=== PATIENT | female | born 1990 | race Caucasian/White ===

== ENCOUNTER 2016-09-27 01:06 | Emergency (ER) | payer OTHER ==
[~2016-09-27 01:06] MED LIST: CIPRO PO; DEPO-PROVER150 MG/ML INJ; DICLOFENAC PO; ERYTHROMYCIN OP; FAMOTIDINE PO; FLEXERIL10 MG PO; LORTAB 7.5-5001 TAB PO; MOBIC PO; NO MEDICATIONS; ORTHO TRI-7 DAYS X PO; PHENERGAN PO; PRENATAL MULITV1 TAB PO; PYRIDIUM PO; SKELAXIN PO; ZITHROMAX PO; ZOFRAN ODT4 MG PO
== END 2016-09-27 01:20 | disposition home or self-care (01) ==
LOC: CED 01:06
DX: Z53.21 Procedure and treatment not carried out due to patient leaving prior to being seen by health care provider (principal)

== ENCOUNTER 2016-10-09 00:09 | Emergency (ER) | payer OTHER ==
[~2016-10-09] VITALS: Ht 162.6 cm; Wt 72.6 kg
[2016-10-09] MEDS ORDERED: PROZAC40 MG (00:18)
== END 2016-10-09 01:11 | disposition home or self-care (01) ==
LOC: SED 00:09
DX: F18.10 Inhalant abuse, uncomplicated (principal); F32.9 Major depressive disorder, single episode, unspecified; Z90.49 Acquired absence of other specified parts of digestive tract; Z88.1 Allergy status to other antibiotic agents; Z88.8 Allergy status to other drugs, medicaments and biological substances
CPT/HCPCS: 99284

== ENCOUNTER 2016-10-11 10:29 | Inpatient (IN) | payer OTHER ==
[~2016-10-11] VITALS: Ht 162.6 cm; Wt 72.6 kg
--- NOTE | ~2016-10-11 | PA ---
Unit #: [id number] #: [id number] Patient: JENNIFER ISAAC [id number] [facility] [address] [place] [address] [id number] MR#: [id number] NAME: JENNIFER ISAAC ROOM: P252 Age: 25 Sex: F Admission Date: 10/11/2016 : 1990 Date of Assessment: 10/12/2016 Attending Physician: Sebastian Young M.D. Admitting Physician: Sebastian Young M.D. Primary Care Physician: Higinio Brito M.D. PSYCHIATRIC ASSESSMENT INFORMANT(S) Patient, reliability fair. Chart, reliability good. CHIEF COMPLAINT Depression. HISTORY OF PRESENT ILLNESS Ms. Jennifer Isaac is a 25-year-old female presented with the above-mentioned complaint. The patient reported severe depression, suicidal ideation, with a plan to walk into moving traffic to kill herself. The patient reported current stressors: Her 2 children were placed in their biological father's custody in 05/09/2016 after she had an argument with him, and police were called causing CPS involvement. The patient has ordered a drug assessment and a complete parenting program. The patient reports over the past 2 months using inhalers, dust, and bizarre behavior. The patient reported having symptoms of seizure last night and was taken to [place] [facility]. The patient stated that she ran out of her Xanax 4 days ago and prescribed Prozac, Bactrim, and discharged. The patient's next court date is on 10/13/2016 for theft. The patient needing inpatient admission at this time for psychiatric stabilization. PAST PSYCHIATRIC HISTORY Remarkable for history of previous treatment as an adolescent at [facility] for truancy, outpatient followup for depression, Dr. Beaulieu (04/08/2016). FAMILY/SOCIAL HISTORY The patient is living with the grandparents. No history of any abuse. History of legal problems as mentioned above. MEDICAL HISTORY Remarkable for history of UTI and asthma. Musculoskeletal: Muscle strength and tone: No atrophy or abnormal movement. Gait normal. MEDICATION HISTORY The patient is on Prozac, Bactrim, and albuterol. ALLERGIES No known drug allergies. SUBSTANCE ABUSE HISTORY The patient reported tobacco use, age of onset 25; alcohol, age of onset 16; marijuana, age of onset 16; inhalant, age of onset 25. Longest period Unit #: [id number] #: [id number] Patient: JENNIFER ISAAC of sobriety years. The patient reported history of black outs. No history of HIV, hepatitis, withdrawal symptom, or IV drug use. REVIEW OF SYSTEMS HEENT: Eyes: Clear. Ears, Nose, Mouth, and Throat: Clear. CARDIOVASCULAR/RESPIRATORY: Unremarkable. GI/: Unremarkable. SKIN/LYMPH NODE/NEUROLOGICAL/ENDOCRINE/HEMATOLOGICAL/ALLERGIC/IMMUNOLOGICAL: Unremarkable. MUSCULOSKELETAL: Muscle strength and tone: No atrophy or abnormal movement. Gait normal. MENTAL STATUS EXAMINATION Constitutional: Measurement of vital signs: 97.7, 87, 16. Oxygen saturation 100%, blood pressure 101/73. Height 5 feet 4 inches. Weight 160 pounds. General Appearance: The patient dressed casually. The patient is not showing any facial deformity. Musculoskeletal: Please see above. Psychiatric examination: Description of speech: Slow in volume and rate. Nonspontaneous. Description of thought process: Circumstantial. Description of association: Guarded, paranoid. Description of abnormal psychotic thinking: Guarded, paranoid, mood lability, delusional, withdrawn, flat, sad, depressed, suicidal ideation. Description of the patient's judgment: Concerning everyday activity, poor; social situation, poor; concerning psychiatric condition, poor. Complete Mental Status Examination: Oriented in time, place, and person. Recent and remote memory fair. Attention span, concentration poor. Language: Fair. Fund of knowledge: Fair. Vocabulary: Fair. Mood and affect: Sad, dysphoric. Insight and judgment: Fair to slightly impaired. ASSETS AND LIABILITIES Assets: The patient articulate. Able to take care of her ADL. Liabilities: Legal problems, depression, 358 . ADMITTING DIAGNOSES PSYCHIATRIC: Major depressive disorder, recurrent, severe, F33.2. Anxiety disorder not otherwise specified, F43.01 History of substance abuse disorder. SECONDARY: Deferred. MEDICAL: History of asthma. Urinary tract infection. STRESSORS: Psychosocial stressor. PSYCHIATRIC PLAN/TREATMENT GOALS/DISCHARGE PLANNING 1. Advised to admit the patient on the inpatient unit. Provide safe, supportive, structured environment. 2. Ordered labs: CBC, CMP, UA, UDS. 3. Precaution for self-harm. 4. The patient to attend all the programming on the inpatient unit. Group therapy, individual therapy, medication management. The patient was started on Zyprexa. The patient is on Prozac. Advised to continue. If needed, continue further adjustment of medication. We will continue to follow. 5. Treatment goal: To attain euthymic mood, gain insight into her problem, learn coping skill. Unit #: [id number] #: [id number] Patient: JENNIFER ISAAC 6. Discharge plan: Plan to stabilize the patient and consider followup in outpatient program. ESTIMATED LENGTH OF STAY 3 to 5 days. Dictated by... Sebastian Young M.D. SAJI/brant TD: 10/13/2016 11:29 JOB #: [id number] PSYCHIATRIC ASSESSMENT Page 1 of 1 X Sebastian Young MD X PSYCHIATRIC ASSESSMENT
--- NOTE | ~2016-10-11 | CO ---
Unit #: [id number] #: [id number] Patient: TOMAS AVELAR [id number] [facility] [address] [place] [address] [id number] MR#: [id number] NAME: TOMAS AVELAR ROOM: P252 Age: 25 Sex: F Admission Date: 10/11/2016 : 1990 Attending Physician: Sebastian Young M.D. Primary Care Physician: Higinio Brito M.D. Consultation Date: 10/13/2016 CONSULTATION REPORT ORDERING PROVIDER Dr. Young. REASON FOR CONSULT Congestion. SUBJECTIVE The patient reports that earlier today, she had some nasal congestion when she was lying down, however, since she has been upright, the congestion has resolved. She denies any wheezing or coughing. OBJECTIVE Her examination is unremarkable. Vital signs are stable. Lungs are clear to auscultation bilaterally. ASSESSMENT Congestion, resolved. PLAN Plan is to continue to monitor. Dictated by... Mey Roque/ty TD: 10/13/2016 23:35 JOB #: [id number] CONSULTATION REPORT Page 1 of 1 X JULIEN ELIZABETH APRN X CONSULTATION REPORT
--- NOTE | ~2016-10-11 | PN ---
Unit #: [id number] #: [id number] Patient: TOMAS AVELAR [id number] [facility] [address] [place] [address] [id number] I MR#: [id number] NAME: TOMAS AVELAR ROOM: P252 Age: 25 Sex: F Admission Date: 10/11/2016 : 1990 Attending Physician: Sebastian Young M.D. Admitting Physician: Sebastian Young M.D. Primary Care Physician: Abdirahman Butt PROGRESS NOTES DATE OF SERVICE 10/16/2016 DISCUSSION Ms. Rodriguez is a 25-year-old female. Patient interviewed, chart reviewed. Obtained information from nursing staff. Patient reported that she is feeling sad, depressed but reports medication is helping her able to contract for safety. Patient compliant and cooperative. Complete review of systems unremarkable. MENTAL STATUS EXAMINATION General appearance, patient dressed casually. Attention span and concentration fair. Oriented to time, place and person. Mood and affect sad, dysphoric. Speech monotone. Thought process concrete. Patient denied any thoughts of harming self or others or psychotic symptom. Recent and remote memory poor. Insight and judgement poor. DIAGNOSIS Major depressive disorder recurrent severe. ASSESSMENT/PLAN Advise to continue with current medication and therapeutic protocol. If needed consider further adjustment of medication. Dictated by... Abdirahman Mo/sushila TD: 10/18/2016 03:12 JOB #: [id number] [facility] PROGRESS NOTES Page 1 of 1 X Sebastian Young MD X PROGRESS NOTE
--- NOTE | ~2016-10-11 | PN ---
Unit #: [id number] #: [id number] Patient: JENNIFER ISAAC [id number] [facility] [address] [place] [address] [id number] I MR#: [id number] NAME: JENNIFER ISAAC ROOM: P252 Age: 25 Sex: F Admission Date: 10/11/2016 : 1990 Attending Physician: Sebastian Young M.D. Admitting Physician: Sebastian Young M.D. Primary Care Physician: Higinio Brito M.D. [facility] PROGRESS NOTES DATE OF SERVICE 10/15/2016 DISCUSSION Ms. Jennifer Isaac is a 25-year-old female seen on 10/15/2016. Patient reported that medication is making her sleepy in the morning but reported overall making progress. Decreased in paranoia, depressed. Complete review of systems unremarkable. MENTAL STATUS EXAMINATION General appearance, patient dressed casually. Attention span and concentration fair. Oriented to time, place and person. Mood and affect sad, dysphoric, flat. Speech monotone. Thought process concrete. Patient denied any suicidal or homicidal ideation but somewhat withdrawn. Recent and remote memory poor. Insight and judgement poor. DIAGNOSES 1. Mood disorder NOS. 2. Psychosis NOS. ASSESSMENT/PLAN Advise to discontinue trazodone and start patient on Seroquel 50 mg at bedtime, discontinue Zyprexa. If needed consider further adjustment of medication. Dictated by... Abdirahman Mo/sushila TD: 10/17/2016 02:54 JOB #: [id number] Unit #: [id number] #: [id number] Patient: JENNIFER ISAAC [facility] PROGRESS NOTES Page 1 of 1 X Sebastian Young MD PROGRESS NOTE
--- NOTE | ~2016-10-11 | HP ---
Unit #: [id number] #: [id number] Patient: JENNIFER AVELAR [id number] [facility] [address] [place] [address] [id number] I MR#: [id number] NAME: JENNIFER AVELAR ROOM: P252 Age: 25 Sex: F Admission Date: 10/11/2016 : 1990 Attending Physician: Sebastian Young M.D. Admitting Physician: Sebastian Young M.D. Primary Care Physician: Higinio Brito M.D. HISTORY AND PHYSICAL HISTORY OF PRESENT ILLNESS Jennifer is a 25-year-old female admitted on 10/11/[address] [place] [address] for suicidal ideation. PAST MEDICAL HISTORY Asthma. PAST SURGICAL HISTORY Cholecystectomy. ALLERGIES Potassium and Augmentin. SOCIAL HISTORY Smokes 1 pack of cigarettes daily. Occasional social alcohol and occasional social marijuana use. She is currently single and living with her grandparents. FAMILY HISTORY Noncontributory. REVIEW OF SYSTEMS CONSTITUTIONAL: No fever or chills. HEENT: Denies any sore throat, ear pain or runny nose. CARDIOVASCULAR: Denies chest pain, irregular heart rhythm or palpitations. CHEST: Denies shortness of breath or cough. No hemoptysis. GASTROINTESTINAL: Denies nausea, vomiting, diarrhea or chronic constipation. ENDOCRINE: Denies history of increased thirst or urination. No recent significant weight loss or gain. GENITOURINARY: Denies dysuria, frequency, or hematuria. SKIN: Denies any rashes. HEMATOLOGIC: Denies history of increased bleeding or bruising. MUSCULOSKELETAL: Denies any hot, swollen joints. No generalized muscle pain. NEUROLOGIC: Denies problems with vision or speech. No frequent, severe headaches. No numbness, tingling or weakness in any extremities. Denies loss of bladder or bowel control. CURRENT MEDICATIONS Prozac. PHYSICAL EXAMINATION Unit #: [id number] #: [id number] Patient: JENNIFER AVELAR GENERAL: Alert, oriented, in no acute distress. VITAL SIGNS: Blood pressure 101/73, heart rate 87, respirations 16, temperature 97.7. HEIGHT: 5 feet 4. WEIGHT: 160 pounds. SKIN: Warm and dry without rash or lesion. HEENT: Normocephalic. TMs not viewed. Oral and nasal passages clear. Conjunctivae clear. PERRLA. EOMs intact. NECK: Supple without lymphadenopathy or thyromegaly. HEART: Regular rate and rhythm without murmur. LUNGS: Clear. ABDOMEN: Soft, nontender, without masses or hepatosplenomegaly. : Not done. EXTREMITIES: No evidence of cyanosis, clubbing or edema. Moves all without focal deficit. NEUROLOGICAL: Grossly within normal limits. Cranial Nerves: II: Visual avina are intact. III, IV AND : Extraocular movements are intact. Pupils are equal, round and reactive to light. V: Facial sensation is grossly normal. VII: Facial movements and expression are normal. VIII: Auditory acuity grossly intact. IX, X: Uvula is midline. Phonation is normal. XI: Patient shrugs shoulders and turns head normally. XII: Tongue protrudes in the midline. Sensory and Motor Function: Sensory and motor sensation is grossly normal. Motor: moves all extremities well. Coordination: Gait is normal. Deep Tendon Reflexes: Intact. IMPRESSION 1. Psychiatric admission. 2. Asthma. RECOMMENDATIONS PSYCHIATRIC: Per psychiatrist. MEDICAL: No contraindication to participate in facility's activities. MEDICAL PROGNOSIS Good. MEDICAL CONDITION Stable. Dictated by... Mey Fields/jonathan TD: 10/11/2016 18:44 JOB #: [id number] Unit #: [id number] #: [id number] Patient: JENNIFER AVELAR HISTORY AND PHYSICAL Page 1 of 1 X CINDA DUNN APRN X HISTORY AND PHYSICAL
--- NOTE | ~2016-10-11 | DS ---
Unit #: [id number] #: [id number] Patient: TOMAS AVELAR [id number] [facility] [address] [place] [address] [id number] I MR#: [id number] NAME: TOMAS AVELAR ROOM: [facility] Age: 25 Sex: F Admission Date: 10/11/2016 : 1990 Discharge Date: 10/17/2016 Attending Physician: Sbeastian Young M.D. Primary Care Physician: Higinio Brito M.D. DISCHARGE SUMMARY REASON FOR ADMISSION Depression and psychosis. DIAGNOSTIC STUDIES LABORATORY RESULTS: Urine drug screen is positive for benzodiazepine. HOSPITAL COURSE The patient was admitted to inpatient unit on 10/11/2016 and discharged on 10/17/2016. The patient was treated on the inpatient unit with group therapy, individual therapy, chemical dependency group, medication management. The patient was responsive to treatment. Subsequently, the patient was discharged with a plan to follow up in outpatient program. DISCHARGE MEDICATIONS Prozac 40 mg daily for depression, Claritin 10 mg daily for allergies, Pepcid 20 mg b.i.d. for GERD, Vistaril 25 mg q.i.d. for anxiety, Seroquel 50 mg at bedtime for sleep, and psychosis. DISCHARGE DIAGNOSES Psychiatric: 1. Major depressive disorder, recurrent, severe, F33.2. 2. Anxiety disorder, not otherwise specified, F40.01. Secondary diagnosis: Deferred. Medical diagnosis: Asthma, urinary tract infection. Stressors: Psychosocial stressors. DISCHARGE INSTRUCTIONS The patient is to follow up in outpatient clinic as per elementary school social worker. CONDITION ON DISCHARGE The patient was pleasant and cooperative. Denied any psychotic symptom or any suicidal ideation. PROGNOSIS Guarded. DIET AND ACTIVITY As tolerated. Dictated by... Unit #: [id number] #: [id number] Patient: TOMAS AVELAR Sebastian Young M.D. SZC/modl TD: 10/19/2016 03:37 JOB #: [id number] DISCHARGE SUMMARY Page 1 of 1 X Sebastian Young MD X DISCHARGE SUMMARY
--- NOTE | ~2016-10-11 | PN ---
Unit #: [id number] #: [id number] Patient: TOMAS AVELAR [id number] [facility] [address] [place] [address] [id number] I MR#: [id number] NAME: TOMAS AVELAR ROOM: P252 Age: 25 Sex: F Admission Date: 10/11/2016 : 1990 Attending Physician: Sebastian Young M.D. Admitting Physician: Sebastian Young M.D. Primary Care Physician: Abdirahman Butt PROGRESS NOTES DATE 10/14/2016 DISCUSSION Ms. Rodriguez is a 25-year-old female seen on 10/14/2016. Patient interviewed. Chart reviewed. Obtained information from nursing staff. Patient was compliant, cooperative, able to participate in activity therapy, calm, cooperative throughout the group. Interacted appropriately. Patient still somewhat sad, dysphoric, flat affect, guarded, anxious. Patient's complete review of system unremarkable. MENTAL STATUS EXAMINATION General appearance, patient dressed casually. Attention span, concentration fair. Oriented in time, place and person. Mood and affect labile. Speech monotone. Thought process concrete. Patient denied any thoughts of harming self or others but somewhat guarded, withdrawn, isolative. Recent and remote memory poor. Insight and judgement poor. DIAGNOSES 1. Major depressive disorder, recurrent, severe. 2. Rule out bipolar mood disorder. ASSESSMENT/PLAN Advised to continue with current medication and therapeutic protocol. If needed, consider further adjustment of medication. Dictated by... Abdirahman Mo/jonathan TD: 10/14/2016 20:58 JOB #: [id number] Unit #: [id number] #: [id number] Patient: TOMAS AVELAR [facility] PROGRESS NOTES Page 1 of 1 X Sebastian Young MD X PROGRESS NOTE
--- NOTE | ~2016-10-11 | CO ---
Unit #: [id number] #: [id number] Patient: JENNIFER AVELAR [id number] [place] [address] [id number] I MR#: [id number] NAME: JENNIFER AVELAR ROOM: [facility] Age: 25 Sex: F Admission Date: 10/11/2016 : 1990 Attending Physician: Sebastian Young M.D. Primary Care Physician: Higinio Brito M.D. Consultation Date: 10/11/2016 CONSULTATION REPORT HISTORY OF PRESENT ILLNESS Jennifer reports that 1 week ago, she noticed a rash on the inside of her left arm, on the inside of her right forearm and on her right knee that started out very itchy and at first, she thought it was poison jensen, but now she is not sure, she has been using calamine lotion, which helped dry at the left side, but has not helped at other spots on her arm. She reports redness, but no oozing and has not treated with any other medications. She has no other complaints. PHYSICAL EXAMINATION CARDIAC: Regular rate and rhythm. No murmurs, gallops, or rubs. RESPIRATORY: Clear to auscultation bilaterally. SKIN: Mild erythemic bumps on right forearm, right knee and back that appeared to be chiggers. ASSESSMENT AND PLAN Contact dermatitis, likely caused by blood chiggers. We will begin Claritin 10 mg p.o. daily, Zantac 150 mg p.o. b.i.d. and hydrocortisone cream 1% apply b.i.d. for 10 days. Please notify if symptoms worsen. Dictated by... Mey Fields/ty TD: 10/12/2016 01:11 JOB #: [id number] CONSULTATION REPORT Page 1 of 1 X CINDA DUNN APRN X CONSULTATION REPORT
--- NOTE | ~2016-10-11 | PN ---
Unit #: [id number] #: [id number] Patient: JENNIFER ISAAC [id number] [facility] [address] [place] [address] [id number] I MR#: [id number] NAME: JENNIFER ISAAC ROOM: P252 Age: 25 Sex: F Admission Date: 10/11/2016 : 1990 Attending Physician: Sebastian Young M.D. Admitting Physician: Sebastian Young M.D. Primary Care Physician: Higinio Brito M.D. [facility] PROGRESS NOTES DATE 10/13/2016 DISCUSSION Ms. Jennifer Isaac is a 25-year-old female seen on 10/13/2016. Patient interviewed. Chart reviewed. Obtained information from nursing staff. Patient continues to be seclusive, isolative, sad, depressed, passive SI. Patient's vital signs stable, initially refused. Patient complaining of feeling sick, avoiding groups. Complete review of system unremarkable. MENTAL STATUS EXAMINATION General appearance, patient dressed casually. Attention span, concentration poor. Oriented in self and place. Mood and affect labile, sad, depressed, withdrawn. Speech monotone. Thought process concrete. Patient reported having passive SI. Denied any homicidal ideation, guarded, withdrawn, isolative. Recent and remote memory poor. Insight and judgement poor. DIAGNOSES 1. Major depressive disorder, recurrent, severe, F33.2. 2. Anxiety disorder NOS. 3. History of substance abuse disorder. ASSESSMENT/PLAN Advised to continue with current medication and therapeutic protocol. If needed, consider adjustment of medication. Dictated by... Abdirahman Mo/jonathan TD: 10/13/2016 20:14 JOB #: [id number] Unit #: [id number] #: [id number] Patient: JENNIFER ISAAC [facility] PROGRESS NOTES Page 1 of 1 X Sebastian Young MD PROGRESS NOTE
[~2016-10-11 10:29] MED LIST changes: +PROZAC40 MG
[2016-10-13 10:00] LABS: URINE APPEARANCE CLEAR; URINE BILIRUBIN NEG (NEG); URINE BLOOD 1+ (NEG); URINE COLOR YELLOW; URINE GLUCOSE NEG (NEG); URINE KETONE NEG (NEG); URINE LEUKOCYTE ESTERASE 2+ (NEG); URINE NITRATE POS (NEG); URINE PH 5.5 (5-8); URINE PROTEIN NEG (NEG); URINE SPECIFIC GRAVITY 1.019 (1.003-1.035); URINE UROBILINOGEN 0.2 MG/DL (NEG)
[2016-10-13 10:02] LABS: URBCS1 AUWI 0-2 /[HPF] (0-2); URINE BACTERIA AUWI 4+ (NEGATIVE); URINE SQUAMOUS EPITHELIAL CELL OCC /[HPF]; UWBCS1 AUWI 25-50 (0-5)
[2016-10-13 11:04] LABS: AMPHETAMINE NEG (NEG); BARBITURATES NEG (NEG); BENZODIAZEPINES POS (NEG); COCAINE NEG (NEG); MARIJUANA NEG (NEG); OPIATES NEG (NEG); TRICYCLIC ANTIDEPRESSANTS NEG (NEG); U METHADONE NEG (NEG)
== END 2016-10-17 14:00 | disposition home or self-care (01) | DRG 885 ==
LOC: P2L 13:17 → POF 13:17 → P2L 13:29 → POF 14:00 → P2L 14:05
PROVIDERS: Psychiatry & Neurology Psychiatry
DX: F33.2 Major depressive disorder, recurrent severe without psychotic features (principal); N39.0 Urinary tract infection, site not specified; J45.909 Unspecified asthma, uncomplicated; F17.210 Nicotine dependence, cigarettes, uncomplicated; F41.9 Anxiety disorder, unspecified
CPT/HCPCS: 80307; 81003

== ENCOUNTER 2016-10-20 12:00 | Inpatient (IN) | payer OTHER ==
[~2016-10-20] VITALS: Ht 162.6 cm; Wt 72.6 kg
--- NOTE | ~2016-10-20 | PN ---
Unit #: [id number] #: [id number] Patient: TOMAS AVELAR [id number] [facility] [address] [place] [address] [id number] I MR#: [id number] NAME: TOMAS AVELAR ROOM: P209 Age: 25 Sex: F Admission Date: 10/20/2016 : 1990 Attending Physician: Sebastian Young M.D. Admitting Physician: Sebastian Young M.D. Primary Care Physician: Abdirahman Desir PROGRESS NOTES DATE OF SERVICE 10/21/2016 DISCUSSION Ms. Rodriguez is a 25-year-old female seen on 10/21/2016. Patient interviewed, chart reviewed, I obtained information from nursing staff. Patient compliant, cooperative, mood was labile, very anxious, nervous, reported having severe anxiety, mood lability. Patient still having passive SI. COMPLETE REVIEW OF SYSTEMS Unremarkable. MENTAL STATUS EXAMINATION GENERAL APPEARANCE: Patient dressed casually. ATTENTION SPAN AND CONCENTRATION: Fair. Oriented in time, place and person. MOOD AND AFFECT: Sad, dysphoric. SPEECH: Monotone. THOUGHT PROCESS: Mullen. Patient denied any thoughts of harming self or others. RECENT AND REMOTE MEMORY: Poor. INSIGHT AND JUDGMENT: Poor. DIAGNOSIS Major depressive disorder, recurrent, severe ASSESSMENT/PLAN Advised to continue with current medication and therapeutic protocol. Advised to add Neurontin 300 mg three times a day and Vistaril changed to 50 mg three times a day. We will continue to follow and make necessary changes, if needed. Dictated by... Abdirahman Mo/dirk TD: 10/21/2016 23:53 JOB #: [id number] Unit #: [id number] #: [id number] Patient: TOMAS AVELAR ROBBIE PROGRESS NOTES Page 1 of 1 X Sebastian Young MD PROGRESS NOTE
--- NOTE | ~2016-10-20 | DS ---
Unit #: [id number] #: [id number] Patient: TOMAS AVELAR [id number] [place] [address] [id number] I MR#: [id number] NAME: TOMAS AVELAR ROOM: P209 Age: 25 Sex: F Admission Date: 10/20/2016 : 1990 Discharge Date: 10/24/2016 Attending Physician: Sebastian Young M.D. Primary Care Physician: Renadr Morrow M.D. DISCHARGE SUMMARY REASON FOR ADMISSION Suicidal ideation. DIAGNOSTIC STUDIES LABORATORY RESULTS: Unremarkable. HOSPITAL COURSE The patient was admitted to inpatient unit on 10/20/2016 and discharged on 10/24/2016. The patient was treated with group therapy, individual therapy, chemical dependency group, structured milieu, and expressive therapy. The patient was responsive to treatment, and subsequently, the patient was discharged with a plan to follow up in outpatient program. DISCHARGE MEDICATIONS Pepcid 20 mg b.i.d. for GERD, Claritin 10 mg daily for allergies, Prozac 60 mg daily for depression, Seroquel 50 mg at bedtime for mood stabilization and sleep, Neurontin 300 mg t.i.d. for chronic pain and anxiety, and Vistaril 50 mg t.i.d. for anxiety. DISCHARGE DIAGNOSES Psychiatric: Major depressive disorder, recurrent, severe, F33.2; anxiety disorder, not otherwise specified, F40.01; and history of cocaine use disorder, moderate, F14.20. Secondary diagnosis: Deferred. Medical diagnosis: History of asthma. Stressors: Psychosocial stressors. DISCHARGE INSTRUCTIONS The patient to follow up in outpatient clinic as per school social worker. CONDITION ON DISCHARGE The patient was pleasant and cooperative. Denied any psychotic symptom or any suicidal ideation. PROGNOSIS Guarded. DIET AND ACTIVITY As tolerated. Unit #: [id number] #: [id number] Patient: TOMAS AVELAR Dictated by... Sebastian Young M.D. SZC/jhonnyl TD: 10/24/2016 21:12 JOB #: [id number] DISCHARGE SUMMARY Page 1 of 1 X Sebastian Young MD DISCHARGE SUMMARY
--- NOTE | ~2016-10-20 | PN ---
Unit #: [id number] #: [id number] Patient: TOMAS AVELAR [id number] [facility] [address] [place] [address] [id number] I MR#: [id number] NAME: TOMAS AVELAR ROOM: P209 Age: 25 Sex: F Admission Date: 10/20/2016 : 1990 Attending Physician: Sebastian Young M.D. Admitting Physician: Sebastian Young M.D. Primary Care Physician: Abdirahman Desir PROGRESS NOTES DATE OF SERVICE 10/23/2016 DISCUSSION Ms. Rodriguez is a 25-year-old male seen on 10/23/2016. Patient interviewed, chart reviewed. Obtained information from nursing staff. Patient reported that she is still feeling sad, depressed but denied any suicidal or homicidal ideation. Patient reported that she has been on Prozac for a long time and needed her medication to be adjusted. Patient's vital signs 98.5, 65, 132/95 97. Complete review of systems unremarkable. MENTAL STATUS EXAMINATION General appearance, patient dressed casually, withdrawn, isolative, sad, depressed. Attention span and concentration fair. Oriented to time, place and person. Mood and affect sad dysphoric. Speech monotone. Thought process concrete. Patient denied any thoughts of harming self or others or any psychotic symptoms. Recent and remote memory poor. Insight and judgement poor. DIAGNOSES 1. Mood disorder NOS. 2. Cocaine use disorder severe. 3. Sedative hypnotic use disorder severe. ASSESSMENT/PLAN Advise to continue with current medication and therapeutic protocol. If needed consider further adjustment of medication with a plan to increase Prozac to 60 mg daily. Dictated by... Abdirahman Mo/sushila TD: 10/24/2016 23:52 JOB #: [id number] Unit #: [id number] #: [id number] Patient: TOMAS AVELARSTEPHY PROGRESS NOTES Page 1 of 1 X Sebastian Young MD PROGRESS NOTE
--- NOTE | ~2016-10-20 | PN ---
Unit #: [id number] #: [id number] Patient: JENNIFER ISAAC [id number] [facility] [address] [place] [address] [id number] I MR#: [id number] NAME: JENNIFER ISAAC ROOM: P209 Age: 25 Sex: F Admission Date: 10/20/2016 : 1990 Attending Physician: Sebastian Young M.D. Admitting Physician: Sebastian Young M.D. Primary Care Physician: Abdirahman Desir PROGRESS NOTES DATE 10/22/2016 DISCUSSION Jennifer Isaac is a 25-year-old female seen on 10/22/2016. Patient interviewed. Chart reviewed. Obtained information from nursing staff. Patient requests for larger portion and also reported having a lot of anxiety. Patient sad, depressed, withdrawn, isolative, guarded but able to maintain safe behavior. Patient had scored 7 on a CIWA score. Complete review of system unremarkable. MENTAL STATUS EXAMINATION General appearance, patient dressed casually. Attention span, concentration fair. Oriented in time, place and person. Mood and affect sad, depressed. Speech monotone. Thought process concrete. Patient denied any thoughts of harming self or others. Recent and remote memory poor. Insight and judgement poor. DIAGNOSIS Major depressive disorder, recurrent, severe. ASSESSMENT/PLAN Advised to continue with current medication and therapeutic protocol. Ordered larger portion all meals. Continue with the inpatient programming. If needed, make further adjustment of medication. Dictated by... Abdirahman Mo/jonathan TD: 10/22/2016 23:24 JOB #: [id number] Unit #: [id number] #: [id number] Patient: JENNIFER ISAAC PROGRESS NOTES Page 1 of 1 X Sebastian Young MD PROGRESS NOTE
--- NOTE | ~2016-10-20 | HP ---
Unit #: [id number] #: [id number] Patient: JENNIFER AVELAR [id number] [place] [address] [id number] I MR#: [id number] NAME: JENNIFER AVELAR ROOM: P209 Age: 25 Sex: F Admission Date: 10/20/2016 : 1990 Attending Physician: Sebastian Young M.D. Admitting Physician: Sebastian Young M.D. Primary Care Physician: Renard Morrow M.D. HISTORY AND PHYSICAL HISTORY OF PRESENT ILLNESS Jennifer is a 25 year old admitted to [address] [place] [address] because of her continued polysubstance abuse which includes alcohol and benzodiazepines. PAST MEDICAL HISTORY 1. Long history of illicit substance abuse to include benzodiazepines. 2. History of alcohol abuse. 3. History of withdrawal seizures. 4. Asthma. PAST SURGICAL HISTORY Cholecystectomy. ALLERGIES Augmentin, potassium. SOCIAL HISTORY Smokes 1 pack per day. Drinks alcohol frequently and has a history of illicit drug use to include abusing benzodiazepines. FAMILY HISTORY Medically noncontributory. REVIEW OF SYSTEMS CONSTITUTIONAL: No fever or chills. HEENT: Denies any sore throat, ear pain or runny nose. CARDIOVASCULAR: Denies chest pain, irregular heart rhythm or palpitations. CHEST: Denies shortness of breath or cough. No hemoptysis. GASTROINTESTINAL: Denies nausea, vomiting, diarrhea or chronic constipation. ENDOCRINE: Denies history of increased thirst or urination. No recent significant weight loss or gain. GENITOURINARY: Denies dysuria, frequency, or hematuria. SKIN: Denies any rashes. HEMATOLOGIC: Denies history of increased bleeding or bruising. MUSCULOSKELETAL: Denies any hot, swollen joints. No generalized muscle pain. NEUROLOGIC: Denies problems with vision or speech. No frequent, severe headaches. No numbness, tingling or weakness in any extremities. Denies loss of bladder or bowel control. CURRENT MEDICATIONS Detox protocol. Unit #: [id number] #: [id number] Patient: JENNIFER AVELAR PHYSICAL EXAMINATION GENERAL: Alert, well-nourished, in no apparent distress. VITAL SIGNS: Blood pressure 100/46, heart rate 80, respirations 16, temperature 98.6. WEIGHT: 160. HEIGHT: 5 feet 4 inches. SKIN: Warm and dry without rash or lesion. HEENT: Normocephalic. TMs not viewed. Oral and nasal passages clear. Conjunctivae clear. PERRLA. EOMs intact. NECK: Supple without lymphadenopathy or thyromegaly. HEART: Regular rate and rhythm without murmur. LUNGS: Clear. ABDOMEN: Soft, nontender. : Not done. EXTREMITIES: No evidence of cyanosis, clubbing or edema. Moves all without focal deficit. NEUROLOGICAL: Grossly within normal limits. Cranial Nerves: II: Visual avina are intact. III, IV AND : Extraocular movements are intact. Pupils are equal, round and reactive to light. V: Facial sensation is grossly normal. VII: Facial movements and expression are normal. VIII: Auditory acuity grossly intact. IX, X: Uvula is midline. Phonation is normal. XI: Patient shrugs shoulders and turns head normally. XII: Tongue protrudes in the midline. Sensory and Motor Function: Sensory and motor sensation is grossly normal. Motor: moves all extremities well. Coordination: Gait is normal. Deep Tendon Reflexes: Intact. IMPRESSION Psychiatric admission. RECOMMENDATIONS PSYCHIATRIC: Per psychiatrist. MEDICAL: See no contraindication to participate in facility's activities. MEDICAL PROGNOSIS Good. MEDICAL CONDITION Stable. Dictated by... Montserrat Hendrix PJackyA.-C. for Abdirahman Campos/jonathan TD: 10/21/2016 18:05 JOB #: [id number] Unit #: [id number] #: [id number] Patient: JENNIFER AVELAR HISTORY AND PHYSICAL Page 1 of 1 X Montserrat Hendrix X HISTORY AND PHYSICAL
--- NOTE | ~2016-10-20 | PA ---
Unit #: [id number] #: [id number] Patient: TOMAS AVELAR [id number] [facility] [address] [place] [address] [id number] I MR#: [id number] NAME: TOMAS AVELAR ROOM: P209 Age: 25 Sex: F Admission Date: 10/20/2016 : 1990 Date of Assessment: Attending Physician: Sebastian Young M.D. Admitting Physician: Sebastian Young M.D. Primary Care Physician: Renard Morrow M.D. PSYCHIATRIC ASSESSMENT INFORMANTS The patient reliability, fair informant; chart reliability, good. CHIEF COMPLAINT Suicide attempt on 72-hour hold by taking overdose. HISTORY OF PRESENT ILLNESS Ms. Rodriguez is a 25-year-old female, who is well known to us from her last admission on 10/11/2016 and recently discharged on 10/17/2016, presented with the above-mentioned complaint. The patient reports that she took intentional overdose as there are multiple stressors. The patient presented to [facility] with police. The police after they came to serve bench warrant and she disclosed that intentional overdose yesterday for 10 Seroquel and 100 tablets of 15 Vistaril, 10 Prozac of 40 mg approximately 4:00 p.m. on 10/19/2016. The patient reported intentional wanted to kill herself today. The patient was upset and overdosed unsuccessfully. The patient reported feeling sad, depressed. Denied any homicidal ideation or psychotic symptom. The patient reports currently using Xanax and cocaine. The patient will not disclose the amount. The patient reported lot of stress like losing job, losing housing, divorce from , CPS involvement due to drug use, loss of custody of children. Her multiple issues reported feeling sad, depressed, suicidal ideation, needing inpatient admission at this time for psychiatric stabilization. PAST PSYCHIATRIC HISTORY Remarkable for history of previous treatment at [facility]. Before that, history of treatment through [facility] as a child truancy outpatient followup with Dr. Beaulieu for depression. FAMILY HISTORY AND SOCIAL HISTORY The patient is currently living with grandparents. No history of abuse, but history of legal problem as mentioned above. MEDICAL HISTORY Remarkable for history of asthma, UTI. Musculoskeletal; muscle strength and tone, no atrophy or abnormal movement. Gait normal. MEDICATION HISTORY The patient is on Prozac and albuterol. ALLERGIES No known drug allergies. Unit #: [id number] #: [id number] Patient: TOMAS AVELAR SUBSTANCE ABUSE HISTORY Please see above. History of alcohol abuse, age of onset 25. Marijuana, age of onset 16. Inhalant, age of onset 25. Longest period of sobriety a year. The patient reported history of blackouts. No history of any HIV, hepatitis withdrawal symptoms, or any IV drug use. REVIEW OF SYSTEMS HEENT: Eyes, clear. Ears, nose, mouth, and throat are clear. CARDIOVASCULAR: Unremarkable. GI: Unremarkable. : Unremarkable. SKIN: Unremarkable. LYMPH NODE: Unremarkable. NEUROLOGIC: Unremarkable. ENDOCRINE: Unremarkable. HEMATOLOGIC: Unremarkable. ALLERGIC/IMMUNOLOGIC: Unremarkable. MUSCULOSKELETAL: Muscle strength and tone, no atrophy or abnormal movement. Gait normal. MENTAL STATUS EXAMINATION CONSTITUTIONAL: Measurement of vital signs; temperature is 98.7, pulse 59, respirations 16, oxygen saturation 100%, blood pressure 96/47, height 5 feet 4 inches, weight 160 pounds. GENERAL APPEARANCE: The patient dressed casually. No facial deformity noted. MUSCULOSKELETAL: Please see above. PSYCHIATRIC EXAMINATION Description of speech; regular rate, normal volume, normal articulation, coherent. Description of thought process, goal directed. Description of association, intact. Description of abnormal psychotic thinking; the patient denied any hallucination, but depression, suicidal ideation and suicide attempt. Denied any homicidal ideation. Description of the patient's judgment, concerning everyday activity, poor. Social situation, poor. Concerning psychiatric condition, poor. Complete mental status examination; oriented in time, place, and person. Attention span and concentration, fair. Language, intact. Fund of knowledge, fair. Vocabulary, fair. Mood and affect, sad and dysphoric. Insight and judgment, fair to poor. ASSETS AND LIABILITIES Assets; the patient is articulate and able to take care of her ADL. Liability; history of depression, suicidal ideation, suicide attempt, substance abuse. ADMITTING DIAGNOSES Psychiatric: Major depressive disorder, recurrent, severe, F33.2; anxiety disorder, not otherwise specified, F40.01; history of substance abuse disorder; cocaine abuse disorder, moderate, F14.20. Secondary diagnosis: Deferred. Medical diagnosis: History of asthma. Stressors: Psychosocial stressors. Unit #: [id number] #: [id number] Patient: TOMAS AVELAR PSYCHIATRIC PLAN AND TREATMENT GOAL AND DISCHARGE PLAN 1. Admit the patient on the inpatient unit. Provide safe, supportive, and structured environment. 2. Ordered labs; UA, UDS. 3. Plan to resume home medication. If needed, consider further adjustment of medication. 4. Treatment goal; to attain euthymic mood, gain insight into her problem, and learn coping skills. DISCHARGE PLAN Plan to stabilize the patient and consider followup in outpatient program. ESTIMATED LENGTH OF STAY 5 to 7 days. Dictated by... Abdirahman Mo/ty TD: 10/21/2016 14:58 JOB #: [id number] PSYCHIATRIC ASSESSMENT Page 1 of 1 X Sebastian Young MD X PSYCHIATRIC ASSESSMENT
[2016-10-21 09:41] LABS: BASOPHIL# 0.1 X10e3 (0-0.3); BASOPHIL% 0.9 % (0-2.5); EOSINOPHIL# 0.1 X10e3 (0-0.7); EOSINOPHIL% 1.2 % (0.0-7.0); HEMATOCRIT 40.6 % (35.0-45.0); HEMOGLOBIN 13.3 gm/dL (12.0-16.0); LYMPHOCYTE# 2.5 X10e3 (1.0-3.5); LYMPHOCYTE% 33.2 % (17.0-45.0); MEAN CELL VOLUME 89.1 FL (83-96); MEAN CORPUSCULAR HEMOGLOBIN 29.1 PG (28-34); MEAN CORPUSCULAR HGB CONC 32.7 g/dL (30-36); MEAN PLATELET VOLUME 7.7 FL (6.5-11.5); MONOCYTE# 0.3 X10e3 (0-1.0); MONOCYTE% 4.4 % (3.0-12.0); NEUTROPHIL# 4.6 X10e3 (1.5-7.1); NEUTROPHIL% 60.3 % (40-75); PLATELET COUNT 360 X10e3 (140-420); RED BLOOD COUNT 4.56 X10e (3.90-5.30); RED CELL DISTRIBUTION WIDTH 13.1 % (11.0-15.5); WHITE BLOOD COUNT 7.7 X10e3 (4.0-10.5)
[2016-10-21 09:54] LABS: DIFF IND NO
[2016-10-21 10:12] LABS: URINE APPEARANCE CLOUDY; URINE BILIRUBIN NEG (NEG); URINE BLOOD 2+ (NEG); URINE COLOR YELLOW; URINE GLUCOSE NEG (NEG); URINE KETONE NEG (NEG); URINE LEUKOCYTE ESTERASE 3+ (NEG); URINE NITRATE NEG (NEG); URINE PROTEIN NEG (NEG); URINE SPECIFIC GRAVITY 1.016 (1.003-1.035); URINE UROBILINOGEN 0.2 MG/DL (NEG)
[2016-10-21 10:35] LABS: URINE BACTERIA AUWI 3+ (NEGATIVE); URINE SQUAMOUS EPITHELIAL CELL MANY /[HPF]; URINE TRANSITIONAL EPI CELLS FEW /[HPF]
[2016-10-21 10:36] LABS: URINE AMORPHOUS SEDIMENT AMORP URATES; URINE MUCUS PRESENT; URINE YEAST PRESENT; UWBCS1 AUWI 50-100 (0-5)
[2016-10-21 10:49] LABS: BILIRUBIN,TOTAL 0.8 mg/dL (0.2-2.0); CALCIUM SERUM 9.2 mg/dL (8.4-10.2); GLOM FILT RATE Estimated 77.2 mL/min (>60); POTASSIUM 4.3 mmol/L (3.5-5.1); PROTEIN TOTAL SERUM 6.8 g/dL (6.0-8.3)
== END 2016-10-24 10:21 | disposition home or self-care (01) | DRG 885 ==
LOC: P2S 16:22
PROVIDERS: Psychiatry & Neurology Psychiatry
DX: F33.2 Major depressive disorder, recurrent severe without psychotic features (principal); R45.851 Suicidal ideations; F13.20 Sedative, hypnotic or anxiolytic dependence, uncomplicated; F14.20 Cocaine dependence, uncomplicated; F41.9 Anxiety disorder, unspecified; F10.10 Alcohol abuse, uncomplicated; F17.210 Nicotine dependence, cigarettes, uncomplicated; Z88.1 Allergy status to other antibiotic agents
CPT/HCPCS: 80053; 81003; 84703; 85025; 86592

== ENCOUNTER 2016-10-26 14:56 | Inpatient (IN) | payer OTHER ==
[~2016-10-26] VITALS: Ht 162.6 cm; Wt 68.0 kg
--- NOTE | ~2016-10-26 | PN ---
Unit #: [id number] #: [id number] Patient: JENNIFER ISAAC [id number] [facility] [address] [place] [address] [id number] I MR#: [id number] NAME: JENNIFER ISAAC ROOM: P252 Age: 25 Sex: F Admission Date: 10/26/2016 : 1990 Attending Physician: Sebastian Young M.D. Admitting Physician: Sebastian Young M.D. Primary Care Physician: Abdirahman Desir PROGRESS NOTES DATE OF SERVICE 10/28/2016 DISCUSSION Jennifer Isaac is a 25-year-old female seen on 10/28/2016. The patient interviewed, chart reviewed. Obtained information from nursing staff. The patient continues to be sad, dysphoric, flat affect, guarded, withdrawn, isolative, and mood lability. Complete Review of Systems: Unremarkable. MENTAL STATUS EXAMINATION General Appearance: The patient dressed casually. Attention span, concentration: Fair. Oriented in place and person. Mood and affect labile. Thought process: [place]. The patient denied any thoughts of harming self or others but withdrawn, isolative, guarded. Recent and remote memory: Poor. Insight and judgment: Poor. DIAGNOSES 1. Bipolar mood disorder not otherwise specified. 2. History of cocaine use disorder. ASSESSMENT/PLAN Advised to continue with current medication and therapeutic protocol and also ordered hydrocortisone 1% for the patient's complaining of rash on her left arm. Closely monitor the patient's mood and behavior. Dictated by... Abdirahman Mo/brant TD: 10/29/2016 11:09 JOB #: [id number] Unit #: [id number] #: [id number] Patient: JENNIFER ISAAC ROBBIE PROGRESS NOTES Page 1 of 1 X Sebastian Young MD PROGRESS NOTE
--- NOTE | ~2016-10-26 | PN ---
Unit #: [id number] #: [id number] Patient: TOMAS AVELAR [id number] [facility] [address] [place] [address] [id number] I MR#: [id number] NAME: TOMAS AVELAR ROOM: P252 Age: 25 Sex: F Admission Date: 10/26/2016 : 1990 Attending Physician: Sebastian Young M.D. Admitting Physician: Sebastian Young M.D. Primary Care Physician: Abdirahman Desir PROGRESS NOTES DATE OF SERVICE 10/27/2016 DISCUSSION Ms. Rodriguez is a 15-year-old female seen on 10/27/2016. Patient interviewed, chart reviewed. Obtained information from nursing staff. Patient was compliant and cooperative. Mood sad, dysphoric, flat affect, irritable mood, withdrawn, isolative. Complete review of systems unremarkable. MENTAL STATUS EXAMINATION General appearance, patient dressed casually. Attention span and concentration fair. Oriented to time, place and person. Mood and affect labile, flat, sad, dysphoric, withdrawn. Passive SI. Recent and remote memory poor. Insight and judgement poor. DIAGNOSES Major depressive disorder recurrent severe. ASSESSMENT/PLAN Advise to continue with current medication Prozac, Claritin, Pepcid, vistaril, Neurontin. If needed consider further adjustment of medication. The patient is also on Neurontin and trazodone. Dictated by... Abdirahman Mo/sushila TD: 10/28/2016 02:38 JOB #: [id number] Unit #: [id number] #: [id number] Patient: TOMAS AVELARSTEPHY PROGRESS NOTES Page 1 of 1 X Sebastian Young MD PROGRESS NOTE
--- NOTE | ~2016-10-26 | PN ---
Unit #: [id number] #: [id number] Patient: TOMAS AVELAR [id number] [facility] [address] [place] [address] [id number] I MR#: [id number] NAME: TOMAS AVELAR ROOM: P252 Age: 25 Sex: F Admission Date: 10/26/2016 : 1990 Attending Physician: Sebastian Young M.D. Admitting Physician: Sebastian Young M.D. Primary Care Physician: Abdirahman Desir PROGRESS NOTES DATE OF SERVICE 10/29/2016 DISCUSSION Ms. Rodriguez is a 25-year-old female seen on 10/29/2016. The patient interviewed, chart reviewed. Obtained information from nursing staff. The patient was compliant, cooperative. Mood anxious. Reported having a lot of anxiety attack, panic attack. Medications not working. Vital Signs: 94, 87, 16, 109/67. Complete Review of Systems: Unremarkable. MENTAL STATUS EXAMINATION General Appearance: The patient dressed casually. Attention span, concentration: Fair. Oriented in place and person. Mood and affect: Sad, depressed, withdrawn. Speech: Monotone. Thought process: [place]. The patient denied any thoughts of harming self or others but reported having anxiety. Recent and remote memory: Poor. Insight and judgment: Poor. DIAGNOSES 1. Bipolar mood disorder not otherwise specified. 2. History of cocaine use disorder. ASSESSMENT/PLAN Advised to continue with current medication and therapeutic protocol. Advised propranolol 20 mg 3 times a day and advised to hold medication if the patient's pulse less than 60, blood pressure less than 80/60. Continue with inpatient programming. Dictated by... Abdirahman Mo/brant TD: 10/29/2016 18:52 JOB #: [id number] Unit #: [id number] #: [id number] Patient: TOMAS AVELARSTEPHY PROGRESS NOTES Page 1 of 1 X Sebastian Young MD PROGRESS NOTE
--- NOTE | ~2016-10-26 | PA ---
Unit #: [id number] #: [id number] Patient: TOMAS AVELAR [id number] [place] [address] [id number] MR#: [id number] NAME: TOMAS AVELAR ROOM: P252 Age: 25 Sex: F Admission Date: 10/26/2016 : 1990 Date of Assessment: 10/27/2016 Attending Physician: Sebastian Young M.D. Admitting Physician: Sebastian Young M.D. Primary Care Physician: Renard Morrow M.D. PSYCHIATRIC ASSESSMENT INFORMANTS The patient reliability, fair informant and chart reliability, good. COMPLAINT Overdose. HISTORY OF PRESENT ILLNESS Ms. Rodriguez is a 25-year-old female, presented with the above-mentioned complaint. The patient was last admitted on 10/20/2016 with similar complaint. The patient was admitted from [facility] after taking an overdose. The patient has a history of multiple admission at [facility], and outpatient followup through [facility]. Lives with grandfather. The patient presented with a suicide attempt by taking 20 Seroquel. The patient sent to [facility] and after medical clearance, the patient was admitted to [facility]. The patient continues to endorse suicidal ideation and placed on 72-hour hold. The patient has a history of previous similar suicide attempt. The patient reported stressors included conflict with grandparents, not able to see children, loss of job, and impulsive. The patient reports increase in depression since the of her parents in July. The patient needing inpatient admission at this time for psychiatric stabilization. PAST PSYCHIATRIC HISTORY Remarkable for history of previous multiple admission, last admission on 10/20/2016, please see above for detail. FAMILY HISTORY AND SOCIAL HISTORY The patient currently lives with grandparents. No history of abuse. History of legal problems. MEDICAL HISTORY Remarkable for history of asthma and UTI. Musculoskeletal; muscle strength and tone, no atrophy or abnormal movement. Gait normal. MEDICATION HISTORY The patient is on no medication, was discharged on Pepcid, Claritin, Prozac, Seroquel, Neurontin, and Vistaril. ALLERGIES No known drug allergies. SUBSTANCE ABUSE HISTORY History of alcohol use, age of onset 25; marijuana, age of onset 16; and Unit #: [id number] #: [id number] Patient: TOMAS AVELAR inhalant, age of onset 25. Longest period of sobriety a year. The patient reported history of blackout. No history of any HIV or hepatitis. REVIEW OF SYSTEMS HEENT: Eyes, clear. Ears, nose, mouth, and throat; clear. CARDIOVASCULAR: Unremarkable. RESPIRATORY: Unremarkable. GI: Unremarkable. : Unremarkable. SKIN: Unremarkable. LYMPH NODE: Unremarkable. NEUROLOGIC: Unremarkable. ENDOCRINE: Unremarkable. HEMATOLOGIC: Unremarkable. ALLERGIC/IMMUNOLOGIC: Unremarkable. MUSCULOSKELETAL: Muscle strength and tone, no atrophy or abnormal movement. Gait normal. MENTAL STATUS EXAMINATION CONSTITUTIONAL: Measurement of vital signs; temperature 98.4, heart rate 60, respiratory rate 16, oxygen saturation 100%, and blood pressure 98/50. Height 5 feet 4 inches and weight 160 pounds. GENERAL APPEARANCE: The patient dressed casually. No facial deformity noted. MUSCULOSKELETAL: Please see above. PSYCHIATRIC EXAMINATION Description of speech; regular rate, normal volume, normal articulation, and coherent. Description of thought process, goal directed. Description of association, intact. Description of abnormal psychotic thinking; denied any hallucination or delusions, but depression, suicidal ideation, and irritability. Denied any homicidal ideation. Description of the patient's judgment: Concerning everyday activity, poor. Social situation, poor. Concerning psychiatric condition, poor. Complete mental status examination; oriented in time, place, and person. Attention span and concentration, fair. Language, intact. Fund of knowledge, fair. Vocabulary, fair. Mood and affect, sad and dysphoric. Insight and judgment, fair to poor. ASSETS AND LIABILITIES Assets, the patient is articulate and able to take care of her ADL. Liability; history of suicidal ideation, suicide attempt, and substance abuse. ADMITTING DIAGNOSES Psychiatric: Major depressive disorder, recurrent, severe, F33.2; anxiety disorder, not otherwise specified, F40.01; history of substance abuse disorder; and cocaine abuse disorder, moderate, F14.20. Secondary diagnosis: Deferred. Medical diagnosis: History of asthma. Stressors: Psychosocial stressors. PSYCHIATRIC PLAN AND TREATMENT GOAL AND DISCHARGE PLAN 1. Advised to admit the patient on the inpatient unit. Provide safe, Unit #: [id number] #: [id number] Patient: TOMAS AVELAR supportive, and structured environment. 2. Ordered labs; UA and UDS. 3. Plan to resume home medication, but advised to stop Seroquel. The patient to attend all the programing, group therapy, and individual therapy. 4. The patient to attend all the programing on the inpatient unit, group therapy, individual therapy, and structured milieu. Treatment goal to attain euthymic mood, gain insight into her problem, and learn coping skills. DISCHARGE PLAN Plan to stabilize the patient and consider follow up in the outpatient program. ESTIMATED LENGTH OF STAY 5 to 7 days. Dictated by... Sebastian Young M.D. SAJI/ty TD: 10/27/2016 18:24 JOB #: [id number] PSYCHIATRIC ASSESSMENT Page 1 of 1 X Sebastian Young MD X PSYCHIATRIC ASSESSMENT
--- NOTE | ~2016-10-26 | PN ---
Unit #: [id number] #: [id number] Patient: JENNIFER ISAAC [id number] [facility] [address] [place] [address] [id number] MR#: [id number] NAME: JENNIFER ISAAC ROOM: P252 Age: 25 Sex: F Admission Date: 10/26/2016 : 1990 Attending Physician: Sebastian Young M.D. Admitting Physician: Sebastian Young M.D. Primary Care Physician: Abdirahman Desir PROGRESS NOTES DATE 10/30/2016 DISCUSSION Ms. Jennifer Isaac is a 25-year-old female, patient seen on 10/30/2016. The patient interviewed, chart reviewed, and obtained information from the nursing staff. The patient reports that she did not like Inderal and would like different medication for his anxiety. The patient was compliant and cooperative, seemed calm and cooperative, able to participate in group. REVIEW OF SYSTEMS Complete review of systems unremarkable. MENTAL STATUS EXAMINATION General appearance: Patient dressed casually. Attention span and concentration, fair. Oriented in place and person. Mood and affect, labile. Speech, monotone. Thought process, concrete. The patient denied any thoughts of harming self or others, or any psychotic symptoms. Recent and remote memory, poor. Insight and judgment, poor. DIAGNOSES 1. Bipolar mood disorder, NOS. 2. History of cocaine use disorder. ASSESSMENT/PLAN Advised to continue with the current medication and therapeutic protocol, and if needed consider further adjustment of medication with a plan to discharge next week. Dictated by... Abdirahman Mo/syed TD: 10/31/2016 05:10 JOB #: [id number] Unit #: [id number] #: [id number] Patient: JENNIFER ISAAC ROBBIE PROGRESS NOTES Page 1 of 1 X Sebastian Young MD PROGRESS NOTE
--- NOTE | ~2016-10-26 | HP ---
Unit #: [id number] #: [id number] Patient: JENNIFER AVELAR [id number] [place] [address] [id number] MR#: [id number] NAME: JENNIFER AVELAR ROOM: P252 Age: 25 Sex: F Admission Date: 10/26/2016 : 1990 Attending Physician: Sebastian Young M.D. Admitting Physician: Sebastian Young M.D. Primary Care Physician: Renard Morrow M.D. HISTORY AND PHYSICAL NOTE Jennifer is a 25 year old admitted to [facility] because of her continued polysubstance abuse. She was been changed from this facility. The patient was seen and H and P dated 10/21/2016 was reviewed. This is current. No changes. Please see H and P dated 10/21/2016. Dictated by... Montserrat Hendrix PJackyAJacky-Shyann. for Abdirahman Campos/sushila TD: 10/26/2016 20:52 JOB #: [id number] HISTORY AND PHYSICAL Page 1 of 1 X Montserrat Hendrix HISTORY AND PHYSICAL
--- NOTE | ~2016-10-26 | DS ---
Unit #: [id number] #: [id number] Patient: TOMAS AVELAR [id number] [facility] [address] [place] [address] [id number] MR#: [id number] NAME: TOMAS AVELAR ROOM: [facility] Age: 25 Sex: F Admission Date: 10/26/2016 : 1990 Discharge Date: 10/31/2016 Attending Physician: Sebastian Young M.D. Primary Care Physician: Renard Morrow M.D. DISCHARGE SUMMARY REASON FOR ADMISSION Depression, overdose. DIAGNOSTIC STUDIES LABORATORY DATA: Unremarkable. HOSPITAL COURSE The patient was admitted to inpatient unit on October 26 and discharged on 10/31/2016. The patient was treated with group therapy, individual therapy, and medication management. The patient was responsive to treatment. Subsequently, the patient was discharged with plan to follow up in outpatient program. DISCHARGE MEDICATIONS Neurontin 300 mg 3 times a day. The patient was given a week's supply. The patient to continue with Prozac 60 mg daily for depression, Vistaril 50 mg 3 times a day for anxiety, Pepcid 20 mg twice daily for GERD. DISCHARGE DIAGNOSES PSYCHIATRIC: Major depressive disorder, recurrent, severe, F33.2 Anxiety disorder not otherwise specified. History of cocaine use disorder, moderate. SECONDARY: Deferred. MEDICAL: History of asthma. STRESSORS: Psychosocial stressor. FOLLOWUP CARE The patient to follow up in outpatient clinic as per director of social media marketing. CONDITION ON DISCHARGE The patient pleasant, cooperative. Denied any psychotic symptom or any suicidal ideation. PROGNOSIS Guarded. DIET AND ACTIVITY As tolerated. Dictated by... Sebastian Young M.D. Unit #: [id number] #: [id number] Patient: TOMAS AVELAR SZC/bzg TD: 11/03/2016 06:50 JOB #: [id number] DISCHARGE SUMMARY Page 1 of 1 X Sebastian Young MD X DISCHARGE SUMMARY
[2016-10-29 14:09] LABS: AMPHETAMINE NEG (NEG); BARBITURATES NEG (NEG); BENZODIAZEPINES POS (NEG); COCAINE NEG (NEG); MARIJUANA NEG (NEG); OPIATES NEG (NEG); TRICYCLIC ANTIDEPRESSANTS POS (NEG); U METHADONE NEG (NEG)
== END 2016-10-31 18:49 | disposition home or self-care (01) | DRG 885 ==
LOC: P2L 14:56
PROVIDERS: Psychiatry & Neurology Psychiatry
DX: F31.9 Bipolar disorder, unspecified (principal); F14.20 Cocaine dependence, uncomplicated; F41.9 Anxiety disorder, unspecified; J45.909 Unspecified asthma, uncomplicated; F17.210 Nicotine dependence, cigarettes, uncomplicated
CPT/HCPCS: 80307